=== PATIENT | female | born 1950 | race Asian ===

== ENCOUNTER 2020-11-27 11:12 | Emergency (ER) | payer MEDICARE, OTHER ==
[~2020-11-27] VITALS: Ht 157.5 cm; Wt 53.1 kg
[2020-11-27 11:45] VITALS: BP 139/64
== END 2020-11-27 14:30 | disposition home or self-care (01) ==
LOC: ER 11:12
DX: M54.16 Radiculopathy, lumbar region (principal); M25.551 Pain in right hip; I10 Essential (primary) hypertension; E11.9 Type 2 diabetes mellitus without complications; E78.5 Hyperlipidemia, unspecified
CPT/HCPCS: 72100; 73502

== ENCOUNTER 2024-03-14 09:15 | Inpatient (IN) | payer BC, MEDICAID ==
[~2024-03-14] VITALS: Ht 160 cm; Wt 55.5 kg
[2024-03-14 10:07] LABS: Urine Bacteria FEW /hpf (None Seen); Urine Blood TRACE /uL (Negative); Urine Clarity Turbid (Clear); Urine Color Dark-Yellow (Yellow); Urine Hyaline Cast FEW /lpf (0 - 2); Urine Protein, UAD 1+ (Negative); Urine Urobilinogen 4 mg/dL (Negative); Urine WBC 19 /hpf (0 - 5); Urine WBC Clumps PRESENT /hpf (None Seen); Urine pH 5.5 (5.0-9.0)
[2024-03-14 11:16] LABS: Basophils # (auto) 0 10 ^3/uL (0-0.2); Basophils % (auto) 0.4 % (0.0-2.0); Eosinophils # (auto) 0 10 ^3/uL (0-0.8); Eosinophils % (auto) 0.3 % (0.0-7.0); Hematocrit 46.4 % (36.0-46.0); Lymphocytes # (auto) 0.6 10 ^3/uL (0.4-5.4); Lymphocytes % (auto) 7.7 % (10.0-50.0); Mean Corpuscular Hemoglobin 32.4 pg (28.0-32.0); Mean Corpuscular Hgb Conc. 34.5 g/dL (32.0-36.0); Mean Corpuscular Volume 93.9 fL (80.0-100.0); Monocytes # (auto) 0.3 10 ^3/uL (0-1.3); Monocytes % (auto) 3.6 % (0.0-12.0); Neutrophils # (auto) 6.5 10 ^3/uL (1.6-8.6); Platelet Count (auto) 137 10^3/uL (140-450); Red Blood Cells 4.94 10^6/uL (4.0-5.20); Red Cell Distribution Width 13.3 % (11.8-14.3); White Blood Cell 7.4 10^3/uL (4.4-10.8)
[2024-03-14 11:32] LABS: Chloride 101 mmol/L (98-107); Potassium 3.8 mmol/L (3.5-5.1); Sodium 136 mmol/L (136-145)
[2024-03-14 11:33] LABS: Anion Gap 10 (5-15); Calcium 9.9 mg/dL (8.7-10.4); Carbon Dioxide 25 mmol/L (20-31)
[2024-03-14 11:38] LABS: BUN/Creatinine Ratio 16.2 (10.0-20.0); Blood Urea Nitrogen 23 mg/dL (9-23); Glucose 253 mg/dL (74-106)
[2024-03-14] MEDS: SODIUM CHLORIDE 0.9% 1,000 ML IV ONE ×2 (11:39→11:42)
[2024-03-14] MEDS: ONDANSETRON HCL 4 MG/2 ML VIAL IV ONE (11:41)
[2024-03-14] MEDS: MORPHINE SULFATE 4 MG/ML SYR/VIAL IV ONE (11:42)
[2024-03-14] MEDS ORDERED: DOCUSATE SOD 100 MG CAP PO PRN (14:30)
[2024-03-14] MEDS ORDERED: ONDANSETRON HCL 4 MG/2 ML VIAL IV PRN (14:30)
[2024-03-14] MEDS ORDERED: MORPHINE SULFATE INJ 2 MG/ml SYRG IV PRN (14:30)
[2024-03-14] MEDS ORDERED: DEXTROSE (50%) 50ML SYRG IV PRN (14:30)
[2024-03-14] MEDS: SODIUM CHLORIDE 0.9% 1,000 ML IV SCH (14:30)
[2024-03-14] MEDS ORDERED: NICOTINE 7MG/24HR TOPICAL PATCH TD ONE (16:00)
[2024-03-14] MEDS ORDERED: NITROGLYCERIN 0.4 MG SL TAB SL PRN ×2 (16:00→19:00)
[2024-03-14] MEDS: PIPERACILLIN-TAZOB 3.375GM 100 ML IV ONE (16:00)
[2024-03-14 16:20] LABS: Triglycerides 634 mg/dL (< 150)
[2024-03-14 16:21] LABS: Magnesium 2.2 mg/dL (1.6-2.6)
[2024-03-14 16:22] LABS: Cholesterol 267 mg/dL (< 200); HDL Cholesterol 19 mg/dL (40-59); Phosphorus 3.3 mg/dL (2.4-5.1)
[2024-03-14 16:49] LABS: Lipase 43 U/L (12-53)
[2024-03-14] MEDS: InsuLIN REG 1unit/0.01ml Soln (100units/ml) SC SCH (18:00)
[2024-03-14] MEDS: ACCU-CHEK COMFORT CURVE STRIP VI SCH (18:00)
[2024-03-14 18:55] VITALS: BP 155/69; PULSE 75; RESP 19; TEMP 98; O2SAT 99
[2024-03-14 19:09] VITALS: BP 155/69; PULSE 74; PULSE 75; RESP 18; RESP 19; TEMP 98; O2SAT 99
[2024-03-14 19:13] LABS: Alkaline Phosphatase 160 U/L (46-116)
[2024-03-14 19:14] LABS: Alanine Aminotransferase 173 U/L (7-40); Albumin 4.2 g/dL (3.2-4.8); Aspartate Aminotransferase 101 U/L (13-40); Bilirubin, Total 6.4 mg/dL (0.2-1.0); Total Protein 7.2 g/dL (5.7-8.2)
[2024-03-14 20:00] VITALS: PULSE 76; RESP 18
[2024-03-14] MEDS: NICOTINE 7MG/24HR TOPICAL PATCH TD ONE (20:39)
[2024-03-14 21:00] VITALS: BP 155/69; PULSE 75; RESP 19; TEMP 98.1; O2SAT 94
[2024-03-15] VITALS (7 sets, daily range): BP systolic 149–164; BP diastolic 60–78; PULSE 69–79; RESP 15–19; TEMP 97.7–98.8; O2SAT 93–100
[2024-03-15] MEDS: PIPERACILLIN-TAZOB 3.375GM 100 ML IV SCH (04:08)
[2024-03-15 07:16] LABS: Basophils # (auto) 0 10 ^3/uL (0-0.2); Basophils % (auto) 0.4 % (0.0-2.0); Eosinophils # (auto) 0.1 10 ^3/uL (0-0.8); Eosinophils % (auto) 2.7 % (0.0-7.0); Hematocrit 40.5 % (36.0-46.0); Hemoglobin 14.3 g/dL (12.2-16.2); Lymphocytes # (auto) 0.7 10 ^3/uL (0.4-5.4); Lymphocytes % (auto) 17.5 % (10.0-50.0); Mean Corpuscular Hemoglobin 33.2 pg (28.0-32.0); Mean Corpuscular Hgb Conc. 35.3 g/dL (32.0-36.0); Mean Corpuscular Volume 94.1 fL (80.0-100.0); Monocytes # (auto) 0.1 10 ^3/uL (0-1.3); Neutrophils # (auto) 3.2 10 ^3/uL (1.6-8.6); Neutrophils % (auto) 76.4 % (37.0-80.0); Platelet Count (auto) 125 10^3/uL (140-450); Red Cell Distribution Width 13.4 % (11.8-14.3); White Blood Cell 4.3 10^3/uL (4.4-10.8)
[2024-03-15 07:43] LABS: Alanine Aminotransferase 125 U/L (7-40); Albumin 3.8 g/dL (3.2-4.8); Alkaline Phosphatase 170 U/L (46-116); Anion Gap 9 (5-15); Aspartate Aminotransferase 94 U/L (13-40); BUN/Creatinine Ratio 18.4 (10.0-20.0); Blood Urea Nitrogen 19 mg/dL (9-23); Calcium 8.9 mg/dL (8.7-10.4); Carbon Dioxide 24 mmol/L (20-31); Chloride 106 mmol/L (98-107); Glucose 158 mg/dL (74-106); Potassium 3.7 mmol/L (3.5-5.1); Sodium 139 mmol/L (136-145)
[2024-03-15 07:44] LABS: Bilirubin, Total 4.6 mg/dL (0.2-1.0); Total Protein 6.3 g/dL (5.7-8.2)
[2024-03-15] MEDS ORDERED: hydrALAZINE HCL 20 MG/ML VL IV PRN (09:00)
[2024-03-15] MEDS: SODIUM CHLORIDE 0.9% 1,000 ML IV SCH (09:00)
[2024-03-15] MEDS: NICOTINE 7MG/24HR TOPICAL PATCH TD SCH (10:51)
[2024-03-15] MEDS: PANTOPRAZOLE 40 MG/10 ML VIAL INJ IV SCH (10:51)
[2024-03-16] VITALS (8 sets, daily range): BP systolic 143–179; BP diastolic 65–87; PULSE 68–79; RESP 17–22; TEMP 97.9–99.2; O2SAT 95–98
[2024-03-16 07:36] LABS: Basophils # (auto) 0 10 ^3/uL (0-0.2); Basophils % (auto) 0.6 % (0.0-2.0); Eosinophils # (auto) 0.1 10 ^3/uL (0-0.8); Eosinophils % (auto) 2.1 % (0.0-7.0); Hematocrit 42.9 % (36.0-46.0); Hemoglobin 15.2 g/dL (12.2-16.2); Lymphocytes # (auto) 0.5 10 ^3/uL (0.4-5.4); Lymphocytes % (auto) 12.5 % (10.0-50.0); Mean Corpuscular Hemoglobin 32.8 pg (28.0-32.0); Mean Corpuscular Hgb Conc. 35.5 g/dL (32.0-36.0); Mean Corpuscular Volume 92.5 fL (80.0-100.0); Monocytes # (auto) 0.1 10 ^3/uL (0-1.3); Monocytes % (auto) 1.4 % (0.0-12.0); Neutrophils # (auto) 3.4 10 ^3/uL (1.6-8.6); Neutrophils % (auto) 83.4 % (37.0-80.0); Nucleated Red Blood Cells % 0.1 %; Platelet Count (auto) 128 10^3/uL (140-450); Red Blood Cells 4.64 10^6/uL (4.0-5.20); Red Cell Distribution Width 13.2 % (11.8-14.3)
[2024-03-16 07:43] LABS: Alanine Aminotransferase 138 U/L (7-40); Albumin 3.9 g/dL (3.2-4.8); Alkaline Phosphatase 191 U/L (46-116); Anion Gap 8 (5-15); Aspartate Aminotransferase 123 U/L (13-40); BUN/Creatinine Ratio 11.9 (10.0-20.0); Blood Urea Nitrogen 12 mg/dL (9-23); Calcium 9.1 mg/dL (8.7-10.4); Carbon Dioxide 25 mmol/L (20-31); Chloride 106 mmol/L (98-107); Glucose 183 mg/dL (74-106); Potassium 3.8 mmol/L (3.5-5.1); Sodium 139 mmol/L (136-145)
[2024-03-16 07:44] LABS: Bilirubin, Total 3.5 mg/dL (0.2-1.0)
[2024-03-16 07:45] LABS: Total Protein 6.5 g/dL (5.7-8.2)
[2024-03-16] MEDS: PIPERACILLIN-TAZOB 3.375GM 100 ML IV SCH (17:48)
[2024-03-17 01:00] VITALS: BP 145/72; PULSE 74; RESP 20; TEMP 98; O2SAT 99
[2024-03-17 05:00] VITALS: BP 164/70; PULSE 76; RESP 19; TEMP 98.1; O2SAT 99
[2024-03-17 07:28] LABS: Alanine Aminotransferase 153 U/L (7-40); Albumin 3.7 g/dL (3.2-4.8); Alkaline Phosphatase 174 U/L (46-116); Anion Gap 9 (5-15); Aspartate Aminotransferase 116 U/L (13-40); BUN/Creatinine Ratio 9.9 (10.0-20.0); Blood Urea Nitrogen 10 mg/dL (9-23); Calcium 9.1 mg/dL (8.7-10.4); Carbon Dioxide 24 mmol/L (20-31); Chloride 107 mmol/L (98-107); GFR African American 69 mL/min; GFR Non-African American 57 mL/min; Glucose 192 mg/dL (74-106); Magnesium 1.8 mg/dL (1.6-2.6); Potassium 3.5 mmol/L (3.5-5.1); Sodium 140 mmol/L (136-145); Triglycerides 425 mg/dL (< 150)
[2024-03-17 07:30] LABS: Bilirubin, Total 2.5 mg/dL (0.2-1.0); Phosphorus 2.9 mg/dL (2.4-5.1); Total Protein 6.4 g/dL (5.7-8.2)
[2024-03-17 07:40] LABS: Basophils # (auto) 0 10 ^3/uL (0-0.2); Basophils % (auto) 0.7 % (0.0-2.0); Eosinophils # (auto) 0.1 10 ^3/uL (0-0.8); Eosinophils % (auto) 2.3 % (0.0-7.0); Hematocrit 43.9 % (36.0-46.0); Hemoglobin 15.4 g/dL (12.2-16.2); Lymphocytes % (auto) 24.7 % (10.0-50.0); Mean Corpuscular Hemoglobin 32.5 pg (28.0-32.0); Mean Corpuscular Hgb Conc. 35.2 g/dL (32.0-36.0); Mean Corpuscular Volume 92.4 fL (80.0-100.0); Monocytes # (auto) 0.2 10 ^3/uL (0-1.3); Monocytes % (auto) 5.1 % (0.0-12.0); Neutrophils # (auto) 2.7 10 ^3/uL (1.6-8.6); Neutrophils % (auto) 67.2 % (37.0-80.0); Nucleated Red Blood Cells % 0.1 %; Platelet Count (auto) 147 10^3/uL (140-450); Red Blood Cells 4.74 10^6/uL (4.0-5.20); Red Cell Distribution Width 13.4 % (11.8-14.3)
[2024-03-17 09:09] LABS: Hepatitis B Surface Antigen Negative (Negative)
[2024-03-17 09:21] LABS: Hepatitis B Surface Antigen Negative (Negative)
[2024-03-17 09:30] LABS: Hepatitis A Ab IgM Negative
[2024-03-17 09:31] LABS: Hepatitis B Core IgM Negative; Hepatitis C Antibody Negative (Negative)
[2024-03-17 09:42] LABS: Hepatitis C Antibody Negative (Negative)
[2024-03-17 13:00] VITALS: BP 143/77; PULSE 73; TEMP 98.5; O2SAT 20
[2024-03-17 17:00] VITALS: BP 158/76; PULSE 75; RESP 20; TEMP 98.7; O2SAT 97
[2024-03-17 20:00] VITALS: PULSE 74; RESP 19; O2SAT 99
[2024-03-17 21:37] VITALS: BP 141/66; PULSE 74; RESP 18; TEMP 97.5; O2SAT 97
[2024-03-18 01:29] VITALS: BP 134/67; PULSE 71; RESP 18; TEMP 98; O2SAT 96
[2024-03-18 05:09] VITALS: BP 157/82; PULSE 72; RESP 18; TEMP 97.7; O2SAT 95
[2024-03-18 08:29] LABS: Basophils # (auto) 0 10 ^3/uL (0-0.2); Basophils % (auto) 0.8 % (0.0-2.0); Eosinophils # (auto) 0.1 10 ^3/uL (0-0.8); Eosinophils % (auto) 2.7 % (0.0-7.0); Hematocrit 42.3 % (36.0-46.0); Hemoglobin 14.8 g/dL (12.2-16.2); Lymphocytes # (auto) 1.4 10 ^3/uL (0.4-5.4); Lymphocytes % (auto) 31.2 % (10.0-50.0); Mean Corpuscular Hemoglobin 32.7 pg (28.0-32.0); Mean Corpuscular Volume 93.4 fL (80.0-100.0); Monocytes # (auto) 0.3 10 ^3/uL (0-1.3); Neutrophils # (auto) 2.5 10 ^3/uL (1.6-8.6); Neutrophils % (auto) 57.3 % (37.0-80.0); Platelet Count (auto) 150 10^3/uL (140-450); Red Blood Cells 4.52 10^6/uL (4.0-5.20); Red Cell Distribution Width 13.3 % (11.8-14.3); White Blood Cell 4.4 10^3/uL (4.4-10.8)
[2024-03-18 08:45] LABS: Alanine Aminotransferase 148 U/L (7-40); Alkaline Phosphatase 149 U/L (46-116); Anion Gap 10 (5-15); Blood Urea Nitrogen 12 mg/dL (9-23); Calcium 9.2 mg/dL (8.7-10.4); Carbon Dioxide 23 mmol/L (20-31); Chloride 107 mmol/L (98-107); Glucose 152 mg/dL (74-106); Potassium 3.3 mmol/L (3.5-5.1); Sodium 140 mmol/L (136-145)
[2024-03-18 08:47] LABS: Albumin 3.7 g/dL (3.2-4.8); Aspartate Aminotransferase 99 U/L (13-40); Bilirubin, Total 1.9 mg/dL (0.2-1.0); Total Protein 6.3 g/dL (5.7-8.2)
[2024-03-18 09:00] VITALS: BP 157/78; PULSE 85; RESP 18; TEMP 98.3; O2SAT 98
[2024-03-18] MEDS ORDERED: LEVO750T40 PO (10:09)
[2024-03-18] MEDS ORDERED: METR-344 PO (10:10)
[2024-03-18 13:00] VITALS: PULSE 78; RESP 18; TEMP 97.6; O2SAT 98
[2024-03-18 13:02] VITALS: TEMP 36.8
[2024-03-18] MEDS ORDERED: POTASSIUM EFFERVESENT TAB 25 MEQ PO ONE (13:15)
[2024-03-18] MEDS ORDERED: POTASSIUM CHL 20 Meq TABLET PO ONE (15:00)
== END 2024-03-18 15:10 | disposition home or self-care (01) | DRG 444 ==
LOC: EDBD 09:15 → ER 09:15 → OVERFLOW 15:54 → CENTRAL 18:52
PROVIDERS: ADMIT Internal Medicine; ATTEND Internal Medicine
DX: K80.62 Calculus of gallbladder and bile duct with acute cholecystitis without obstruction (principal); N17.0 Acute kidney failure with tubular necrosis; N30.01 Acute cystitis with hematuria; R17 Unspecified jaundice; R74.01 Elevation of levels of liver transaminase levels; K62.89 Other specified diseases of anus and rectum; D49.0 Neoplasm of unspecified behavior of digestive system; I10 Essential (primary) hypertension; E78.5 Hyperlipidemia, unspecified; K52.9 Noninfective gastroenteritis and colitis, unspecified; E03.9 Hypothyroidism, unspecified; F17.210 Nicotine dependence, cigarettes, uncomplicated; E80.6 Other disorders of bilirubin metabolism; K82.8 Other specified diseases of gallbladder; Z98.82 Breast implant status; E11.65 Type 2 diabetes mellitus with hyperglycemia
CPT/HCPCS: 36415; 74176; 74181; 76705; 80053; 80061; 80069; 80074; 81001; 82306; 82378; 82607; 82962; 83036; 83690; 83735; 84100; 84443; 84478; 85025; 86301; 86803; 87086; 87340; 93005; 96361; 96374; G0378; J1815; J2405; J2470; J2543